=== PATIENT | female | born 1985 | race Caucasian/White ===

== ENCOUNTER 2016-06-30 08:46 | Emergency (ER) | payer MEDICAID, OTHER ==
[~2016-06-30] VITALS: Wt 70.9 kg
--- NOTE | 2016-06-30 10:02 | ERD ---
ER Documentation Chief Complaint Date/Time DATE: 06/30/16 TIME: 09:59 Chief Complaint CHEST PAIN INTERMITTENT FOR 2WKS AND LEFT ARM NUMBNESS. NO SOB . HPI The patient is a 31-year-old female with no past medical history with 2 weeks of intermittent left-sided chest wall pain and left shoulder pain. This differs from original report on triage. She states that she has 2 brief episodes per day. No precipitating factors. She denies shortness of breath, palpitations, dizziness, lightheadedness, nausea, vomiting, change in mentation, change in gait, headache, numbness or tingling, or any other symptoms. She denies any recent injury, accident, trauma, or fall. She has tried Advil at home with good relief. No family history of sudden cardiac . The patient is a nonsmoker. ROS All systems reviewed and are negative except as per history of present illness. Medications Home Meds Active Scripts Ibuprofen* (Motrin*) 600 Mg Tab, 600 MG PO Q8, #30 TAB Prov:SUNNY LOPEZ NP 06/30/16 Allergies Allergies: Coded Allergies: No Known Allergy (Unverified , 06/30/16) PMhx/Soc Medical and Surgical Hx: pt denies Medical Hx, pt denies Surgical Hx Hx Alcohol Use: No Hx Substance Use: No Hx Tobacco Use: No Smoking Status: Never smoker Physical Exam Vitals Vital Signs Date Time Temp Pulse Resp B/P Pulse Ox O2 Delivery O2 Flow Rate FiO2 06/30/16 08:51 98.1 88 20 125/73 99 Physical Exam INITIAL VITAL SIGNS: Reviewed by me GENERAL: Alert. Well developed and well nourished. No respiratory distress HEAD: Head is normocephalic. Atraumatic. EYES: EOMI. PERRL. No scleral icterus. No conjunctival injection. ENT: External ears, nose, and mouth normal. Nasal passages patent. Moist mucous membranes. NECK: Supple. Full range of motion. Trachea midline. RESPIRATORY: No tachypnea. Clear to auscultation bilaterally. No wheezing, rales , or rhonchi. CHEST: Lower segment of the pectoralis major tender to palpation left side. CV: Regular rate and rhythm. No murmurs, rubs, or gallops ABDOMEN: Soft, non-distended, non-tender. No guarding. No rebound. No masses. Bowel sounds normal in all quadrants. BACK: No CVA tenderness. Full ROM. EXTREMITIES: Full range of motion in all extremity joints. Strength 5/5 in all extremity joints. Sensation intact to light touch in all extremities. + Tender to palpation at the left rotator cuff. No obvious deformity. No clubbing or cyanosis. No edema. SKIN: Warm and dry. No diaphoresis. No obvious rashes or lesions. NEUROLOGIC: Alert and oriented x 3. Appropriate. Face is symmetric. Speech is normal. Moves all extremities equally. Procedures/MDM Nursing Notes Reviewed Previous Medical Records requested via [employer]. EMERGENCY DEPARTMENT COURSE / MEDICAL DECISION MAKING: The patient comes to the ED secondary to left-sided chest wall pain and left shoulder aching 2 weeks. Differential diagnosis upon initial evaluation includes but is not limited to: Cardiac causes, musculoskeletal causes, rib fracture, and others. The patient was not experiencing pain at this time, and thus was not treated with any medications. 12-lead EKG Interpretation by Attending Physician Dr. Spaulding and reviewed by Daisy FELDMAN: Normal Sinus Rhythm with ventricular rate of 81 beats per minute Normal axis Normal intervals No ectopic beats No signs of acute changes Overall impression is normal EKG The patient's left-sided chest wall pain and left shoulder pain were easily reproducible with palpation. Given this, the patient's age, that the patient is a nonsmoker, that she does not have a family history of sudden cardiac , and that she denied any shortness of breath/dyspnea/dizziness/lightheadedness/ palpitations, I have low suspicion at this time for cardiac causes of her chest wall pain. She was tender to palpation at the lower segment of the left pectoralis major, and also tender to palpation at the left rotator cuff, specifically the subscapularis and teres minor areas. The patient denied any injury, accident, trauma, or fall. As such, I have low suspicion at this time for any fractures or dislocations. She has full range of motion of her spine and arms. She had 5/5 strength of all joints bilateral upper extremities. Based on patient's history of present illness and physical examination the decision was made to discharge. There is no evidence of life threatening injuries or illnesses at this time. I instructed the patient on gentle stretching techniques of her rotator cuff and pectoralis major and minor. She was able to give returned demonstration. She stated that she felt much better after performing the stretches. I instructed her to please to the stretches at least twice a day. She verbalized understanding and agreed. I instructed her to please follow-up with her primary care provider in order to get a referral for physical therapy. She verbalized understanding and agreed. The patient did state that she has been under more stress than usual and she has a small child at home. I instructed her on stress reducing techniques, and will also give her written materials on stress reduction techniques. I instructed the patient in the importance of self-care. She verbalized understanding and agreed. On re-examination, patient resting in no distress, stable vital signs, reports feeling better and safe for discharge with outpatient follow up with PMD in 2-3 days. Patient given return precautions. She verbalized understanding and agreed to return precautions. She will return here immediately for any new or worsening symptoms. The patient stated that she will follow-up as directed. Prescription Ibuprofen SUNNY LOPEZ NP Jun 30, 2016 10:02
[2016-06-30] MEDS ORDERED: IBUP-1542 PO (10:03)
== END 2016-06-30 10:21 | disposition home or self-care (01) ==
LOC: FTE 08:46
DX: R07.89 Other chest pain (principal); M25.512 Pain in left shoulder
CPT/HCPCS: 93005; Z7502